=== PATIENT | female | born 1955 | race Caucasian/White ===

== ENCOUNTER 2021-06-03 08:31 | Emergency (ER) | payer MEDICARE ==
[~2021-06-03] VITALS: Ht 167.6 cm; Wt 93.6 kg
[2021-06-03 08:40] VITALS: BP 177/100
[2021-06-03] MEDS ORDERED: SOTROVIMAB 500mg injection 500 MG in normal saline 100ml IV soln 100 ML IV ONE (08:55)
[2021-06-03] MEDS ORDERED: DEXA6TAB6 PO (09:18)
[2021-06-03] MEDS ORDERED: dexamethasone sod phosphate 10mg/ml inj IV STA (09:20)
--- NOTE | 2021-06-03 11:00 | NUR ---
pt observed for one hour post infusion, no reactions noted.
== END 2021-06-03 11:07 | disposition home or self-care (01) ==
LOC: ER 08:31
DX: U07.1 COVID-19 (principal); R05.9 Cough, unspecified; R09.81 Nasal congestion; Z79.899 Other long term (current) drug therapy
CPT/HCPCS: 71045; 96374; 99284; J1100; J3490; M0247; Q0247; 96365; 96375